=== PATIENT | female | born 1945 | race Caucasian/White ===

== ENCOUNTER 2018-11-29 08:58 | Day surgery (SDC) | payer MEDICARE, OTHER ==
[~2018-11-29 08:58] MED LIST: 0.9 % SODIUM CHLORIDE PF 10 ML VIAL IJ ONE; LIDOCAINE HCL 1% PF 300MG/30ML VIAL ONE; MIDAZOLAM HCL 2 MG/2 ML VIAL ONE; fentaNYL CITRATE/PF 100 MCG/2 ML INJ. ONE; methylPREDNISolone ACETATE 80 MG/ML VIAL IM ONE
--- NOTE | 2018-12-04 06:17 | Operative Note ---
PROCEDURE: Lumbar Radiofrequency Ablation (bilateral L3-L4, L4-L5 and L5-S1 medial branch levels) LOCATION OF PROCEDURE: [facility]; [place], [place] DATE OF PROCEDURE: 11/29/2018 SURGEON: Chico Garcia M.D. ASSISTANTS: None ANESTHESIA: MAC CHIEF COMPLAINT: Low back pain. HISTORY OF PRESENT ILLNESS: Ms. Hernandes returns for the planned procedure as mentioned above. I had done the patients lumbar medial branch block diagnostic injections back in 07/2018. The patient had previously been scheduled for radiofrequency ablation but that was cancelled/postponed secondary to the patients acute illness. The patient has recovered from that illness and has been reassessed. I am glad to see her for this procedure today and the patient is looking forward to it as well. The patient arrives today with very little lumbar pain, rated at 2/10 in intensity. The patients demographics have been reviewed. The preprocedure paperwork has been reviewed as well as signed informed consent. The patient's condition and proposed procedure, risks and alternative interventions were discussed with the patient, including the risk of bleeding, infection and nerve damage, the potential for efficacy, non-efficacy and increased pain. The patient's questions were answered. The patient voiced understanding and desire to proceed with the procedure. The consent form was signed. PHYSICAL EXAM: On exam, the patient is awake and alert. Vital signs are stable. Heart is regular in rate and rhythm. Eyes PERRLA. Throat clear. Trachea midline. Lungs have good excursion. Abdomen is soft and nontender, obese. The patient has distal lumbosacral tenderness noted. PREOPERATIVE DIAGNOSES: 1. Lumbar spondylosis without myelopathy. 2. Lumbago. 3. Chronic pain syndrome. POSTOPERATIVE DIAGNOSES: 1. Lumbar spondylosis without myelopathy. 2. Lumbago. 3. Chronic pain syndrome. PLAN: We will proceed with the planned procedure as mentioned above. DESCRIPTION OF PROCEDURE: Preprocedure the patients name and date of were verified, confirmed planned procedure with patient, reviewed discharge instructions and a procedure consent was signed. IV was started per Anesthesia staff. Monitors were applied by Anesthesia staff. The patient was administered IV awake sedation/MAC to promote comfort per Anesthesia. The patient was placed in a prone position. The skin overlying the injection sites was prepped with ChloraPrep and draped in a sterile fashion. A procedural pause was performed verifying the correct patient, medical record number, allergies and surgical site immediately prior to starting the procedure. The target injection sites were identified with fluoroscopy. The skin overlying each identified injection site was anesthetized using 3 mL of 0.5% lidocaine MPF with a 25-gauge 1 inch needle. An 18-gauge cannula electrode needle was then advanced under fluoroscopic guidance through the respective skin wheal parallel to the x-ray beam utilizing a bullseye approach to the nerves corresponding to each selected facet joint. Corresponding nerves to cauterize involved the innervation supplying each facet joint from the descending medial branch of the dorsal ramus from the next higher level facet joint and from the ascending medial branch of the dorsal ramus at the same level (for L5-S1 the ascending branch of the L5 dorsal ramus). Nerves to cauterize corresponded to the facet joints as follows: bilateral L3-L4, L4-L5 and L5-S1. To reach each lumbar facet joint median branch nerve from L1-L2 to L4-L5 the cannula needle was advanced to the periosteum medial aspect of the transverse process. If the L5-S1 joint was targeted, this corresponded to placing one cannula needle probe on the lateral aspect of the superior articulating process of the facet joint 1 cm above the junction with the sacral ala; a lateral view confirmed correct needle placement. A lateral image was obtained to confirm needle depth. Once the cannula electrode needle was placed, safe positioning was confirmed with motor stimulation at 2 Hz demonstrating multifidus muscle fasciculations but no motor stimulation in the lower extremities. Then 1.5 mL lidocaine 0.5% MPF mixed with steroid was injected through the cannula at each site; total dose of Depo-Medrol 80 mg. The needle tip curve was pointed medially. All needle tip curves were oriented with the concavity facing the periosteum. Then radiofrequency ablation was provided for 90 seconds at 80 degrees. The probes were then removed. The patient had excellent pain relief with no motor weakness in either lower extremity. The skin was washed off and dried. Dressings were applied to injection sites. It should be noted that motor testing was performed and was negative following placement of the needles. The radiofrequency ablation was performed at 80 degrees for 90 seconds with Venom [place] needles. No rotation of the needle or secondary burn needed to be performed. NOTE: The 15 cm Venom [place] needles were used for this procedure, rather than 10 cm needles. The procedure was completed without complication and was tolerated well. The patient was monitored during and following the procedure. The patient was then brought to the Recovery Room for further evaluation. The patient had no significant lumbar or lower extremity tenderness following the procedure. The patient had minimal incisional tenderness in the region of needle placement; this was not significantly bothersome to the patient. The patient was discharged home in stable condition with no untoward effects. SPECIMENS: None ESTIMATED BLOOD LOSS: Less than 1 cc OPERATIVE COMPLICATIONS: None The patients preprocedure pain level was 2/10. The patients postprocedure pain level was 0/10. POST-PROCEDURE INSTRUCTIONS: We will anticipate having the patient follow back with me in 2 weeks time for further reevaluation. Chico Garcia M.D. (dictated but not read) computer generated signature MN/pre cc: Talon Eastman D.O. Fax: BRIANA
== END 2018-11-29 12:15 | disposition home or self-care (01) ==
LOC: OPSURG 08:58
PROVIDERS: ATTEND Pain Medicine Interventional Pain Medicine
DX: M47.816 Spondylosis without myelopathy or radiculopathy, lumbar region (principal); G89.4 Chronic pain syndrome; M54.5 Low back pain
CPT/HCPCS: 64635; 64636; J1040; J2001; J2250; J3010